=== PATIENT | female | born 1970 | race Two or more races ===

== ENCOUNTER → 2024-04-13 | Outpatient (CLI) | payer BC, SELFPAY ==
--- NOTE | 2024-04-13 | XR_ITS ---
Examination: Temporomandibular joints 5 views TECHNIQUE: Jenn, right and left sagittal oblique opening closed mouth temporomandibular joint views total 5 views Exam date and time: April 13, 2024 0941 hours INDICATIONS: Bilateral temporomandibular joint pain and swelling with eating beginning 2 years ago. FINDINGS: Normal anterior translation both mandibular condyles in the open-mouth position No significant osteoarthritis No fracture IMPRESSION: Normal anterior translation of both mandibular condyles in the open-mouth position If symptoms persist, consider MRI temporomandibular joints without contrast follow-up
[2024-04-13 10:15] LABS: Collection Type, Urine Clean Catch
[2024-04-13 10:37] LABS: Basophils % (Auto) 0 % (0-2.5); Eosinophils # (Auto) 0.1 Thou/mm3 (0.0-0.5); Eosinophils % (Auto) 2 % (0-10); Immature Granulocytes % (Auto) 0 % (0-0); Immature Granulocytes Auto 0.02 Thou/mm3 (0.00-0.00); Lymphocytes % (Auto) 28 % (10-50); Mean Corpuscular HGB Conc 33.3 g/dl (31.0-37.0); Mean Corpuscular Hemoglobin 29.6 pg (25.0-35.0); Mean Corpuscular Volume 89 fL (80-100); Monocytes # (Auto) 0.6 Thou/mm3 (0.0-0.8); Monocytes % (Auto) 9 % (0-12); Neutrophils # (Auto) 4.3 Thou/mm3 (1.8-7.7); Neutrophils % (Auto) 61 % (37-80); Nucleated Red Blood Cell % 0 /100 WBC (0); Platelet Count 245 Thou/mm3 (140-440); RDW Standard Deviation 40.9 fL (36.4-46.3); Red Blood Count 4.73 Miln/mm3 (4.00-5.20); White Blood Count 7.1 Thou/mm3 (3.6-11.0)
[2024-04-13 10:45] LABS: Glucose Estimated Average 157 mg/dL (80-131); Hemoglobin A1C 7.1 % Hgb (4.8-6.0)
[2024-04-13 10:55] LABS: Alanine Aminotransferase 67 U/L (10-49); Albumin, Serum 4.4 gm/dL (3.5-5.0); Albumin/Globulin Ratio 1.3 (1.2-2.2); Alkaline Phosphatase 143 U/L (46-116); Anion Gap 6 (7-16); Aspartate Amino Transferase 57 U/L (0-34); BUN/Creatinine Ratio 20 Ratio (12-20); Bilirubin,Total 0.6 mg/dL (0.3-1.2); Blood Urea Nitrogen 16 mg/dL (9-23); Calcium 9.6 mg/dL (8.3-10.6); Calcium (Corrected) 9.6 mg/dL (8.5-10.1); Carbon Dioxide 28.1 mMol/L (20.0-31.0); Cardiac Risk Estimate 4.6 RATIO (3.7-5.6); Chloride 105 mMol/L (98-107); Cholesterol 166 mg/dL (132-200); Creatinine (Component) 0.8 mg/dL (0.6-1.3); Globulin 3.3 gm/dL (2.3-3.5); Glucose 169 mg/dL (74-106); HDL Cholesterol 36 mg/dL (40-60); LDL Cholesterol,Calculated 106 mg/dL (0-130); Osmolality,Calculated 282 (275-295); Potassium 4.1 mMol/L (3.4-5.1); Sodium 139 mMol/L (136-145); Thyroid Stimulating Hormone 2.91 uIU/mL (0.55-4.78); Total Protein 7.7 gm/dL (5.7-8.2); Triglycerides 121 mg/dL (30-150); eGFR > 60 See Note
[2024-04-13 10:56] LABS: Bacteria,Urine 2+; Bilirubin,Urine Negative (Negative); Blood,Urine Negative (Negative); Clarity,Urine Clear (Clear/Hazy); Color,Urine Yellow (Lt Yel-Yel); Glucose, Urine Negative (Negative); Ketones,Urine Negative (Negative); Leukocyte Esterase,Urine Positive (Negative); Nitrite,Urine Negative (Negative); Protein,Urine Trace (Neg - Trace); RBC,Urine 3 /hpf (0-3); Specific Gravity,Urine 1.028 (1.001-1.035); Squamous Epithelial Cell,Urine 8 /hpf (0-5); Urobilinogen,Urine Negative mg/dL (0.0-1.0); WBC,Urine 3 /hpf (0-5)
== END | disposition home or self-care (01) ==
LOC: CDIM 08:55 → COPL 09:49
PROVIDERS: PCP Family Medicine; Referring Provider Family Medicine; Visit Provider Radiology Diagnostic Radiology
DX: R22.0 Localized swelling, mass and lump, head (principal); L04.9 Acute lymphadenitis, unspecified; Z00.00 Encounter for general adult medical examination without abnormal findings; R22.9 Localized swelling, mass and lump, unspecified; E66.3 Overweight; Z83.3 Family history of diabetes mellitus
CPT/HCPCS: 36415; 70330; 80053; 80061; 81001; 83036; 84443; 85025

== ENCOUNTER → 2024-08-09 | Outpatient (CLI) | payer MEDICAID, SELFPAY ==
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
== END | disposition home or self-care (01) ==
PROVIDERS: PCP Family Medicine; Referring Provider Family Medicine; Visit Provider Family Medicine
DX: I60.9 Nontraumatic subarachnoid hemorrhage, unspecified (principal)
CPT/HCPCS: 70450

== ENCOUNTER 2024-10-26 10:28 | Outpatient (RCR) | payer MEDICAID, SELFPAY ==
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
== END 2024-10-31 23:59 | disposition home or self-care (01) ==
LOC: CPTX 10:28
PROVIDERS: PCP Family Medicine; Referring Provider Family Medicine; Visit Provider Family Medicine
DX: M54.2 Cervicalgia (principal); M54.50 Low back pain, unspecified
CPT/HCPCS: 97162

== ENCOUNTER 2024-11-25 13:30 | Outpatient (RCR) | payer MEDICAID, SELFPAY ==
--- NOTE | 2024-11-08 14:47 | PT.ODAYNRPT ---
PT Outpatient Daily Note OP Daily Note Outpatient Physical Therapy Treatment Date: 11/08/24 Visit Reasons: LOW BACK/NECK PAIN Subjective: Pt c/o neck pain and has poor sitting tolerance due to pain in coccyx. Pt mentioned she has been performing HEP as instructed by PTOR. Objective: Please see flow sheet for ther ex list. Assessment: Pt demonstrates poor AROM of c/s and increase pain with activity. Verbal cues to avoid trunk retro leaning during cervical retraction exercise, pt complied. Plan: Continue with pOC. Length of Time (minutes) of Treatment: 30 Minutes Procedure Charges Therapeutic Exercise 30 minutes: Yes
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
== END 2024-11-30 23:59 | disposition home or self-care (01) ==
LOC: CPTX 13:30
PROVIDERS: PCP Family Medicine; Referring Provider Family Medicine; Visit Provider Family Medicine
DX: M54.2 Cervicalgia (principal); M54.50 Low back pain, unspecified
CPT/HCPCS: 97110

== ENCOUNTER 2024-12-30 13:30 | Outpatient (RCR) | payer MEDICAID, SELFPAY ==
--- NOTE | 2024-12-01 14:00 | PT.ODAYNRPT ---
PT Outpatient Daily Note OP Daily Note Outpatient Physical Therapy Treatment Date: 12/01/24 Visit Reasons: neck and back pain Subjective: Pt reports imporvement with neck - experiencing less pain and stiffness. Objective: See F/S for therex performed Assessment: Improved C/S rotation ROM post C/S STM and passive stretching. Improved ability to perform chin tucks in supine position. No increase in pain with therex. Plan: Continue with POC Length of Time (minutes) of Treatment: 30 Minutes Procedure Charges Therapeutic Exercise 30 minutes: Yes
--- NOTE | 2024-12-03 15:26 | PT.ODAYNRPT ---
PT Outpatient Daily Note OP Daily Note Outpatient Physical Therapy Treatment Date: 12/03/24 Visit Reasons: neck and back pain Subjective: Pt reports neck is slowly improving, notices she rotate her head a little more now. Objective: Please see flow sheet for ther ex list. Assessment: Performed STM to neck, minimal TTP. Plan: Continue with pOC. Length of Time (minutes) of Treatment: 30 Minutes Procedure Charges Therapeutic Exercise 30 minutes: Yes
--- NOTE | 2024-12-10 15:05 | PT.ODAYNRPT ---
PT Outpatient Daily Note OP Daily Note Outpatient Physical Therapy Treatment Date: 12/10/24 Visit Reasons: neck and back pain Subjective: Pt notices neck flexibility is slowly progressing. Objective: Please see flow sheet for ther ex list. Assessment: Pt demonstrates upper trap recruitment with cervical retraction exercise, cues to focus on c/s movement and avoid engaging upper traps. Pt complied post tactile cues and demonstration. Plan: Continue with poC. Length of Time (minutes) of Treatment: 30 Minutes Procedure Charges Therapeutic Exercise 30 minutes: Yes
--- NOTE | 2024-12-15 15:43 | PT.ODAYNRPT ---
PT Outpatient Daily Note OP Daily Note Outpatient Physical Therapy Treatment Date: 12/15/24 Visit Reasons: neck and back pain Subjective: Pt reports she is having more neck pain and notices L shoulder worsening. Objective: Please see flow sheet for ther ex list. Assessment: Progressing interventions within pt tolerance. Plan: Continue with pOC, assess response to treatment. Length of Time (minutes) of Treatment: 30 Minutes Procedure Charges Therapeutic Exercise 30 minutes: Yes
--- NOTE | 2024-12-20 15:25 | PT.ODAYNRPT ---
PT Outpatient Daily Note OP Daily Note Outpatient Physical Therapy Treatment Date: 12/20/24 Visit Reasons: neck and back pain Subjective: Pt reports neck is stiff today, mentioned that her L shoulder continues to hurt and she is getting more concerned. Objective: Please see flow sheet for ther ex list. Assessment: Performed STM to c/s upper trap and occipital release, decrease c/o tension and pain post STM. Plan: Continue with pOC, assess response to treatment. Length of Time (minutes) of Treatment: 30 Minutes Procedure Charges Therapeutic Exercise 30 minutes: Yes
--- NOTE | 2024-12-23 15:09 | PT.ODAYNRPT ---
PT Outpatient Daily Note OP Daily Note Outpatient Physical Therapy Treatment Date: 12/23/24 Visit Reasons: neck and back pain Subjective: Pt reports neck felt better after last PT session, pt is looking into getting a massage. Objective: Please see flow sheet for ther ex list. Assessment: Recommended pt be cautious if she plans to get a massage, avoid c/s manipulation or any aggressive movements pt agreed. Plan: Continue with pOC. Length of Time (minutes) of Treatment: 30 Minutes Procedure Charges Therapeutic Exercise 30 minutes: Yes
--- NOTE | 2024-12-28 15:28 | PT.ODAYNRPT ---
PT Outpatient Daily Note OP Daily Note Outpatient Physical Therapy Treatment Date: 12/28/24 Visit Reasons: neck and back pain Subjective: Less neck pain after last visit attributed to manual therapy Objective: See F/S for therex MT: STM UT's and C/S x7' Assessment: Min TTP of C/S with manual therapy Plan: Continue per POC Length of Time (minutes) of Treatment: 30 Minutes Procedure Charges Therapeutic Exercise 30 minutes: Yes
--- NOTE | 2024-12-30 17:54 | PT.ODAYNRPT ---
PT Outpatient Daily Note OP Daily Note Outpatient Physical Therapy Treatment Date: 12/30/24 Visit Reasons: neck and back pain Subjective: Less neck pain after last visit attributed to manual therapy Objective: See F/S for therex MT: STM UT's and C/S x7' Assessment: Mod TTP of L/S with manual therapy around L5-S1 on R side Plan: Continue per POC Length of Time (minutes) of Treatment: 30 Minutes Procedure Charges Therapeutic Exercise 30 minutes: Yes
== END 2024-12-31 23:59 | disposition home or self-care (01) ==
LOC: CPTX 13:30
PROVIDERS: PCP Family Medicine; Referring Provider Family Medicine; Visit Provider Family Medicine
DX: M54.2 Cervicalgia (principal); M54.50 Low back pain, unspecified
CPT/HCPCS: 97110

== ENCOUNTER 2025-01-18 14:30 | Outpatient (RCR) | payer MEDICAID, SELFPAY ==
--- NOTE | 2025-01-10 14:12 | PT.ODAYNRPT ---
PT Outpatient Daily Note OP Daily Note Outpatient Physical Therapy Treatment Date: 01/10/25 Visit Reasons: Neck and back pain Subjective: Pt reports neck is progressing c/o LBP. Objective: Please see flow sheet for the kuldeep list. Assessment: Pt tolerated interventions for l/s with good tolerance. Plan: PTOR to assess for note. Length of Time (minutes) of Treatment: 30 Minutes Procedure Charges Therapeutic Exercise 30 minutes: Yes
--- NOTE | 2025-01-13 14:54 | PT.ODS1RPT ---
PT OP Progress/Discharge Note Date of Service: 01/13/25 Progress Note/DC Note Progress Note/Discharge Note: Progress Note Patient Information Visit Reasons: Neck and back pain Service Continue Service or Discharge: Continue Service Status Subjective: Pt reports less neck and LBP since starting therapy and that she can turn the head more to the L. To the R is still limited. Objective: C/S AROM: Rotation: R: 80% of full L: 60% of full Flexion: almost full Extension: 40% Trunk AROM: B rotation: 75% of full Assessment: Pt has attended 12/12 Rx visits with fair progress with therapy goals. Pt has less pain overall of neck and back with turning the head and walking. Pt has met the goal of decreased TTP of C/S and L/S paraspinals from mod to min and she can turn the head L to R with <=4/10 pain. Pt would benefit from continued therapy to improve cervical rotation ROM. Plan: Continue with authorized visits x4 Procedure Charges Therapeutic Exercise 30 minutes: Yes
--- NOTE | 2025-01-18 15:18 | PT.ODAYNRPT ---
PT Outpatient Daily Note OP Daily Note Outpatient Physical Therapy Treatment Date: 01/18/25 Visit Reasons: Neck and back pain Subjective: Pt reports progress with neck and back. Pt mentioned that she is going to [place] for the holidays and plans to schedule a massage for her neck and back. Objective: Please see flow sheet for ther ex list. Assessment: Performed STM to c/s and upper trap region resulting in decrease complaint of pain. Plan: Continue with poC. Length of Time (minutes) of Treatment: 30 Minutes Procedure Charges Therapeutic Exercise 30 minutes: Yes
== END 2025-01-30 23:59 | disposition home or self-care (01) ==
LOC: CPTX 14:30
PROVIDERS: PCP Family Medicine; Referring Provider Family Medicine; Visit Provider Family Medicine
DX: M54.2 Cervicalgia (principal); M54.50 Low back pain, unspecified
CPT/HCPCS: 97110

== ENCOUNTER 2025-02-01 13:05 | Outpatient (RCR) | payer MEDICAID, SELFPAY ==
--- NOTE | 2025-02-01 17:45 | PT.ODAYNRPT ---
PT Outpatient Daily Note OP Daily Note Outpatient Physical Therapy Treatment Date: 12/30/24 Visit Reasons: General weakness Subjective: Less neck pain since starting therapy in the neck but the back still hurts Objective: See F/S for therex MHP x7' L/S Assessment: Good response to LE stretches and MHP to reduce LBP Plan: Continue per POC Length of Time (minutes) of Treatment: 30 Minutes Procedure Charges Therapeutic Exercise 30 minutes: Yes
== END 2025-03-02 23:59 | disposition home or self-care (01) ==
LOC: CPTX 13:05
PROVIDERS: PCP Family Medicine; Referring Provider Family Medicine; Visit Provider Family Medicine
DX: M54.2 Cervicalgia (principal); M54.50 Low back pain, unspecified
CPT/HCPCS: 97110